=== PATIENT | male | born 1995 | race Two or more races ===

== ENCOUNTER 2017-11-07 18:22 | Emergency (ER) | payer MEDICAID ==
[~2017-11-07] VITALS: Ht 167.6 cm; Wt 73.5 kg
[~2017-11-07 18:22] MED LIST: MECL-111 PO; NO HOME MEDS
[2017-11-07 18:29] VITALS: BP 128/81
== END 2017-11-07 19:22 | disposition home or self-care (01) ==
LOC: ER 18:23
DX: Z00.8 Encounter for other general examination (principal); R06.00 Dyspnea, unspecified; F17.210 Nicotine dependence, cigarettes, uncomplicated; Z71.6 Tobacco abuse counseling; Z56.0 Unemployment, unspecified; Z79.899 Other long term (current) drug therapy
CPT/HCPCS: 71046; 99284; 99406

== ENCOUNTER 2019-11-17 12:46 | Emergency (ER) | payer MEDICAID, OTHER ==
[~2019-11-17] VITALS: Ht 162.6 cm; Wt 75.0 kg
[~2019-11-17 12:46] MED LIST changes: -MECL-111 PO; +MECL-159 PO
[2019-11-17 12:50] VITALS: BP 114/75
== END 2019-11-17 14:04 | disposition home or self-care (01) ==
LOC: ER 12:46
DX: S13.4XXA Sprain of ligaments of cervical spine, initial encounter (principal); S00.83XA Contusion of other part of head, initial encounter; Z56.0 Unemployment, unspecified; Z79.899 Other long term (current) drug therapy; Y04.8XXA Assault by other bodily force, initial encounter; Y93.89 Activity, other specified; Y92.89 Other specified places as the place of occurrence of the external cause; Y99.0 Civilian activity done for income or pay
CPT/HCPCS: 99281

== ENCOUNTER 2019-12-13 22:41 | Emergency (ER) | payer BC, OTHER ==
[~2019-12-13] VITALS: Ht 162.6 cm; Wt 73.6 kg
[~2019-12-13 22:41] MED LIST changes: +LIDOcaine 1% w/EPI 1:100,000 30ml vial (MDV) ONE
[2019-12-13] MEDS ORDERED: TETanus/Pertussis (Acell)/Diphther VAC/PF (Tdap-Adult) 0.5ml syringe IMVAC ONE (23:00)
[2019-12-14 00:04] VITALS: BP 132/70
== END 2019-12-14 00:02 | disposition home or self-care (01) ==
LOC: ER 22:41
DX: S61.011A Laceration without foreign body of right thumb without damage to nail, initial encounter (principal); Z79.899 Other long term (current) drug therapy; W25.XXXA Contact with sharp glass, initial encounter; Y93.89 Activity, other specified; Y92.89 Other specified places as the place of occurrence of the external cause; Y99.8 Other external cause status
CPT/HCPCS: 12001; 90715; 99282